=== PATIENT | female | born 1995 | race Two or more races ===

== ENCOUNTER → 2019-04-06 | Emergency (ER) | payer OTHER ==
[~2019-04-06] VITALS: Ht 152.4 cm; Wt 68.0 kg
[~2019-04-06] MED LIST: LEVSIN/SL0.125 MG SL; PEPCID40 MG PO
== END | disposition home or self-care (01) ==
LOC: ER 23:08
DX: K21.9 Gastro-esophageal reflux disease without esophagitis (principal)

== ENCOUNTER 2019-12-31 20:06 | Emergency (ER) | payer OTHER ==
[~2019-12-31] VITALS: Ht 154.9 cm; Wt 72.6 kg
== END 2019-12-31 21:24 | disposition home or self-care (01) ==
LOC: ER 20:06
DX: S60.221A Contusion of right hand, initial encounter (principal); S60.211A Contusion of right wrist, initial encounter; W22.8XXA Striking against or struck by other objects, initial encounter; Y93.89 Activity, other specified; Y92.511 Restaurant or cafe as the place of occurrence of the external cause; Y99.8 Other external cause status